=== PATIENT | female | born 1990 | race African-American/Black ===

== ENCOUNTER 2025-09-12 17:47 | Emergency (ER) | payer BC ==
[~2025-09-12] VITALS: Ht 165.1 cm; Wt 108.9 kg
[2025-09-12 17:48] VITALS: TEMP 98.2
[2025-09-12 18:45] LABS: APPEARANCE,URINE CLEAR (CLEAR); BLOOD, URINE Trace-intact Ery/uL (NEGATIVE); LEUKOCYTE ESTERASE ,URINE Negative (NEGATIVE); NITRITE, URINE NEGATIVE (NEGATIVE); UGLUCOSE Negative (NEGATIVE)
[2025-09-12 18:53] LABS: ADD URINE CULTURE NO; SQUAMOUS EPITHELIAL CELL,UR Few /HPF (None Seen)
[2025-09-12 19:32] VITALS: BP 127/74; O2SAT 98
== END 2025-09-12 19:33 | disposition home or self-care (01) ==
LOC: ER 17:56
DX: O26.892 Other specified pregnancy related conditions, second trimester (principal); Z3A.18 18 weeks gestation of pregnancy; Z60.2 Problems related to living alone
CPT/HCPCS: 76805-TC; 81001